=== PATIENT | male | born 1945 | race Caucasian/White ===

== ENCOUNTER 2018-10-04 05:09 | Observation (INO) ==
[2018-10-04] MEDS ORDERED: Ondansetron 4 MG/2 ML VIAL IVP ONE (05:25)
[2018-10-04] MEDS ORDERED: *HR* FentaNYL (PF) 100 MCG/2 ML VIAL IVP ONE (05:25)
[2018-10-04] MEDS ORDERED: 0.9 % Sodium Chloride 1,000 ML IVC STA (05:26)
--- NOTE | 2018-10-04 05:33 | Emergency Department Note ---
Disposition Clinical Impression: Abdominal pain Qualifiers: Abdominal location: generalized Qualified Code(s): R10.84 - Generalized abdominal pain Disposition: Still a Patient Condition: Good Forms: ED Satisfaction Letter, Work/School Release Time of Disposition: 06:20 Abdominal Pain HPI - General Chief Complaint: ED Abdominal Pain Stated Complaint: abd pain Time Seen by Provider: 10/04/18 05:14 Source: patient Mode of arrival: ambulatory Limitations: no limitations Nursing Notes Reviewed: Yes Vital Signs Reviewed: Yes - History of Present Illness HPI Narrative: Male patient presenting to the emergency department complaining of abdominal pain that started yesterday. States he does have a history of 3 surgeries to his abdomen for small bowel obstructions. He does see Dr. chavez for these. States that the pain started yesterday. This causes an aching and bloating feeling in his lower abdomen. States that today it change and is now on his upper abdomen. Does have associated nausea. States he does have some small loose stools that he is passing but that is all. No vomiting. No fevers. Re ports small bowel traction secondary to significant adhesions. Does have a midline abdominal scar. He reports a history of pancreatitis was states this does not feel similar. Pain Scale: 4 - Related Data Home Medications Medication Instructions Recorded Confirmed Aspirin Enteric Coated [Aspirin EC] 81 mg PO DAILY 10/27/14 12/08/15 Ibuprofen [Advil] 200 mg PO AD PRN 12/08/15 12/08/15 Mirtazapine [Remeron] 30 mg PO HS 12/08/15 12/08/15 Previous Rx's Medication Instructions Recorded Acetaminophen [Tylenol] 650 mg PO Q6HR PRN #0 tablet 01/12/16 Metoclopramide [Reglan] 10 mg PO QIDAC #120 tablet 01/12/16 Allergies Allergy/AdvReac Type Severity Reaction Status Date / Time atorvastatin [From Lipitor] AdvReac Weakness Verified 10/04/18 05:12 fenofibrate [From Tricor] AdvReac Nausea Verified 10/04/18 05:12 fexofenadine [From Aubrie-D] AdvReac Abdominal Verified 10/04/18 05:12 Pain pseudoephedrine AdvReac Abdominal Verified 10/04/18 05:12 [From Aubrie-D] Pain sulfamethoxazole AdvReac Nausea Verified 10/04/18 05:12 [From Bactrim] trimethoprim [From Bactrim] AdvReac Nausea Verified 10/04/18 05:12 All systems ED: reviewed and negative except as stated. Review of Systems: As Per HPI Constitutional: Denies: fever, chills Cardiovascular: Reports: chest pain (Lower chest upper abdomen). Denies: syncope Respiratory: Denies: cough, dyspnea Gastrointestinal: Reports: abdominal pain, nausea, diarrhea (Only able to pass a small amount of loose stool). Denies: vomiting, hematemesis, melena, hematochezia Genitourinary: Denies: urgency, dysuria, frequency Abdominal Pain PMH - Past Medical History Medical history: Reports: GERD, hyperlipidemia, hypertension, other Male Surgical History: Reports: appendectomy, cholecystectomy, herniorrhaphy, other Psychiatric history: Reports: no psych history - Social History Smoking status: Never smoker Alcohol use: Reports: none Drug use: Reports: none Physical Exam - General Limitations: no limitations General appearance: alert, in no apparent distress - Head Head exam: atraumatic, normocephalic, normal inspection - Eye Eye exam: Present: normal appearance, PERRL, EOMI - ENT ENT exam: normal exam, normal oropharynx, mucous membranes moist - Neck Neck exam: Present: normal inspection, full ROM, trachea midline - Chest Chest inspection: Present: normal inspection, symmetric chest wall rise - Respiratory Respiratory exam: Present: normal lung sounds bilaterally - Cardiovascular Cardiovascular exam: Present: regular rate, normal rhythm, normal heart sounds - Abdominal Exam Abdominal exam: Present: soft, tenderness (Diffusely.). Absent: distention, guarding, rebound, rigidity, organomegaly, Barnes's sign, Rovsing's sign, tenderness at McBurney's Point - Extremities Exam Extremities exam: Present: normal capillary refill, other (Right [id number] amputation.). Absent: tenderness, pedal edema - Back Exam Back exam: Present: normal inspection, full ROM. Absent: tenderness - Neurological Exam Neurological exam: Present: alert, oriented X3 - Psychiatric Psychiatric exam: Present: normal affect, normal mood - Skin Skin exam: Present: warm, dry, intact, normal color. Absent: rash, cyanosis, diaphoresis Course Course Narrative: Patient walking around the room to get comfortable. His abdomen is rounded but not distended. He reports a small amount of bloating. I cannot auscultate bowel sounds over 30 seconds. His abdomen is soft and not tympanic. He does complain of pain diffusely on palpation. He does not appear to be peritoneal however. Vitals are stable. We will get a basic lab workup on patient and get a CT of his abdomen with IV contrast. We will provide patient with Zofran as well as fentanyl. The Pt did discuss his case with Dr Chavez prior to his arrival here. Vital Signs Temperature 98.2 F 10/04/18 05:09 Pulse Rate 84 10/04/18 05:09 Respiratory Rate 20 10/04/18 05:09 Blood Pressure 143/92 10/04/18 05:09 O2 Sat by Pulse Oximetry 96 10/04/18 05:09 Temperature 98.2 F 10/04/18 05:09 Pulse Rate 84 10/04/18 05:09 Respiratory Rate 20 10/04/18 05:09 Blood Pressure 143/92 10/04/18 05:09 O2 Sat by Pulse Oximetry 96 10/04/18 05:09 Oxygen Delivery Oxygen Delivery Room Air Abdominal Pain - Medical Records Medical records reviewed: Yes I reviewed the patient's medical records. - Lab Data Lab results reviewed: Yes I reviewed the patient's lab results. Result diagrams: 10/04/18 05:43 Lab Results 10/04/18 Range/Units 05:43 WBC 10.2 (4.3-11.1) K/mcL RBC 5.15 (4.19-5.50) M/mcL Hgb 16.9 (12.9-16.9) g/dL Hct 48.0 (37.5-50.1) % MCV 93.2 (83.0-100.0) fL MCH 32.8 (28.0-33.3) pg MCHC 35.2 (31.6-35.5) g/dL RDW 12.7 (11.5-14.5) % Plt Count 239 (140-400) K/mcL MPV 9.2 L (9.4-12.4) fL Immature Gran % 0.4 (0-4) % Seg Neutrophils % 83.0 % Lymphocytes % 7.5 % Monocytes % 8.5 % Eosinophils % 0.3 % Basophils % 0.3 % Neutrophils # 8.5 (1.6-8.9) K/mcL Lymphocytes # 0.8 (0.6-4.6) K/mcL Monocytes # 0.9 (0.0-1.3) K/mcL Eosinophils # 0.0 (0.0-0.6) K/mcL Basophils # 0.0 (0.0-0.2) K/mcL - EKG Data EKG attestation: Yes I reviewed and interpreted this EKG. EKG results narrative: Normal sinus rhythm at a rate of 69. MN interval is 207. QRS duration is 92. QT is 396. No signs of acute ischemia. Poor R-wave progression. No signs of WPW or Brugada.
[2018-10-04 06:01] LABS: Basophils % 0.3 %; Eosinophils % 0.3 %; Hemoglobin 16.9 g/dL (12.9-16.9); Immature Granulocytes % 0.4 % (0-4); Lymphocytes # 0.8 K/mcL (0.6-4.6); Lymphocytes % 7.5 %; Mean Corpuscular HGB Conc 35.2 g/dL (31.6-35.5); Mean Corpuscular Hemoglobin 32.8 pg (28.0-33.3); Mean Corpuscular Volume 93.2 fL (83.0-100.0); Mean Platelet Volume 9.2 fL (9.4-12.4); Monocytes # 0.9 K/mcL (0.0-1.3); Monocytes % 8.5 %; Neutrophils # 8.5 K/mcL (1.6-8.9); Platelet Count 239 K/mcL (140-400); Red Blood Count 5.15 M/mcL (4.19-5.50); Red Cell Distribution Width 12.7 % (11.5-14.5); White Blood Count 10.2 K/mcL (4.3-11.1)
[2018-10-04 06:24] LABS: Troponin I < 0.03 ng/mL (< 0.04)
[2018-10-04 06:29] LABS: Alanine Aminotransferase 21 Units/L (7-52); Albumin 4.9 g/dL (3.5-5.7); Albumin/Globulin Ratio 1.9 (1.1-2.2); Alkaline Phosphatase 102 Units/L (34-104); Aspartate Amino Transferase 18 Units/L (13-39); BUN/Creatinine Ratio 14 (6-26); Bilirubin,Direct 0.3 mg/dL (0.0-0.2); Bilirubin,Indirect 2.3 mg/dL (0.0-1.2); Bilirubin,Total 2.6 mg/dL (0.3-1.0); Blood Urea Nitrogen 14 mg/dL (8-23); Calcium 10.2 mg/dL (8.6-10.3); Carbon Dioxide 20 mEq/L (23-29); Chloride 101 mEq/L (98-107); Globulin 2.6 g/dL (2.4-3.5); Glucose 125 mg/dL (70-105); Lipase 10 Units/L (11-82); Osmolality,Calculated 284 (280-300); Potassium 3.7 mEq/L (3.5-5.1); Sodium 136 mEq/L (136-145); Total Protein 7.5 g/dL (6.4-8.9); eGFR For African Americans > 60 (> 60); eGFR For Non-African Americans > 60 (> 60)
[2018-10-04] MEDS ORDERED: Isovue-370 500 ML BOTTLE IVP ONE (06:34)
--- NOTE | 2018-10-04 06:38 | Emergency Department Note ---
Disposition Clinical Impression: Abdominal pain Qualifiers: Abdominal location: generalized Qualified Code(s): R10.84 - Generalized abdominal pain Disposition: Still a Patient Condition: Good Referrals: Matthew Gallardo Jr, MD [Primary Care Provider] - Forms: ED Satisfaction Letter, Work/School Release Time of Disposition: 06:38 General Adult HPI - General Chief complaint: ED Abdominal Pain Stated complaint: abd pain Time Seen by Provider: 10/04/18 05:14 Source: patient Mode of arrival: ambulatory Limitations: no limitations Nursing Notes Reviewed: Yes Vital Signs Reviewed: Yes - History of Present Illness Pain Scale: 4 - Related Data Home Medications Medication Instructions Recorded Confirmed Aspirin Enteric Coated [Aspirin EC] 81 mg PO DAILY 10/27/14 12/08/15 Ibuprofen [Advil] 200 mg PO AD PRN 12/08/15 12/08/15 Mirtazapine [Remeron] 30 mg PO HS 12/08/15 12/08/15 Previous Rx's Medication Instructions Recorded Acetaminophen [Tylenol] 650 mg PO Q6HR PRN #0 tablet 01/12/16 Metoclopramide [Reglan] 10 mg PO QIDAC #120 tablet 01/12/16 Allergies Allergy/AdvReac Type Severity Reaction Status Date / Time atorvastatin [From Lipitor] AdvReac Weakness Verified 10/04/18 05:12 fenofibrate [From Tricor] AdvReac Nausea Verified 10/04/18 05:12 fexofenadine [From Aubrie-D] AdvReac Abdominal Verified 10/04/18 05:12 Pain pseudoephedrine AdvReac Abdominal Verified 10/04/18 05:12 [From Aubrie-D] Pain sulfamethoxazole AdvReac Nausea Verified 10/04/18 05:12 [From Bactrim] trimethoprim [From Bactrim] AdvReac Nausea Verified 10/04/18 05:12 Constitutional: Denies: fever, chills Cardiovascular: Reports: chest pain (Lower chest upper abdomen). Denies: syncope Respiratory: Denies: cough, dyspnea Gastrointestinal: Reports: abdominal pain, nausea, diarrhea (Only able to pass a small amount of loose stool). Denies: vomiting, hematemesis, melena, hematochezia Genitourinary: Denies: urgency, dysuria, frequency Past Medical History - Past Medical History Medical history: Reports: GERD, hyperlipidemia, hypertension, other Surgical history: Reports: no surgical history Psychiatric history: Reports: no psych history - Social History Smoking Status: Never smoker Smokeless Tobacco Status: No Alcohol use: Reports: none Drug use: Reports: none Physical Exam - General Limitations: no limitations General appearance: alert, in no apparent distress Course Vital Signs Temperature 98.2 F 10/04/18 05:09 Pulse Rate 84 10/04/18 05:09 Respiratory Rate 20 10/04/18 05:09 Blood Pressure 143/92 10/04/18 05:09 O2 Sat by Pulse Oximetry 96 10/04/18 05:09 Temperature 98.2 F 10/04/18 05:09 Pulse Rate 84 10/04/18 05:09 Respiratory Rate 20 10/04/18 05:09 Blood Pressure 143/92 10/04/18 05:09 O2 Sat by Pulse Oximetry 96 10/04/18 05:09 Oxygen Delivery Oxygen Delivery Room Air Medical Decision Making - Medical Records Medical records reviewed: Yes I reviewed the patient's medical records. - Lab Data Lab results reviewed: Yes I reviewed the patient's lab results. Result diagrams: 10/04/18 05:43 10/04/18 05:43 Lab Results 10/04/18 10/04/18 Range/Units 05:43 05:43 WBC 10.2 (4.3-11.1) K/mcL RBC 5.15 (4.19-5.50) M/mcL Hgb 16.9 (12.9-16.9) g/dL Hct 48.0 (37.5-50.1) % MCV 93.2 (83.0-100.0) fL MCH 32.8 (28.0-33.3) pg MCHC 35.2 (31.6-35.5) g/dL RDW 12.7 (11.5-14.5) % Plt Count 239 (140-400) K/mcL MPV 9.2 L (9.4-12.4) fL Immature Gran % 0.4 (0-4) % Seg Neutrophils % 83.0 % Lymphocytes % 7.5 % Monocytes % 8.5 % Eosinophils % 0.3 % Basophils % 0.3 % Neutrophils # 8.5 (1.6-8.9) K/mcL Lymphocytes # 0.8 (0.6-4.6) K/mcL Monocytes # 0.9 (0.0-1.3) K/mcL Eosinophils # 0.0 (0.0-0.6) K/mcL Basophils # 0.0 (0.0-0.2) K/mcL Sodium 136 (136-145) mEq/L Potassium 3.7 (3.5-5.1) mEq/L Chloride 101 (98-107) mEq/L Carbon Dioxide 20 L (23-29) mEq/L BUN 14 (8-23) mg/dL Creatinine 0.97 (0.70-1.30) mg/dL Est GFR ( Amer) > 60 (> 60) Est GFR (Non-Af Amer) > 60 (> 60) BUN/Creatinine Ratio 14 (6-26) Glucose 125 H (70-105) mg/dL Calculated Osmolality 284 (280-300) Calcium 10.2 (8.6-10.3) mg/dL Total Bilirubin 2.6 H (0.3-1.0) mg/dL Direct Bilirubin 0.3 H (0.0-0.2) mg/dL Indirect Bilirubin 2.3 H (0.0-1.2) mg/dL AST 18 (13-39) Units/L ALT 21 (7-52) Units/L Alkaline Phosphatase 102 (34-104) Units/L Troponin I < 0.03 (< 0.04) ng/mL Serum Total Protein 7.5 (6.4-8.9) g/dL Albumin 4.9 (3.5-5.7) g/dL Globulin 2.6 (2.4-3.5) g/dL Albumin/Globulin Ratio 1.9 (1.1-2.2) Lipase 10 L (11-82) Units/L - EKG Data EKG #1 EKG attestation: Yes I reviewed and interpreted this EKG. EKG results narrative: EKG shows a normal sinus rhythm with ventricular rate of 69. Left axis deviation. No significant ST segment elevation or depression. No arrhythmia or ectopy. Attestation Statement - Attestation Attestation: I, Zachary Vaz MD, personally evaluated this patient and discussed their management with the resident physician. I reviewed the resident's note and agree with the documented findings, medical decision making, and plan of care. I reviewed the residents documentation and agree with the residents assessment and plan of care. I have personally had face to face time with the patient. I personally supervised and was present for the jimenez/critical portions of the following procedures completed by the resident: EKG interpretation. 73-year-old male presents to the emergency department with a complaint of generalized abdominal pain that started yesterday but got worse during the night. Some nausea but no vomiting. Patient states he has a history of multiple bowel obstructions in the past and this feels the same. He has had 3 prior abdominal surgeries for bowel obstructions due to adhesions. He is followed by Dr. chavez for his abdominal problems and his last surgery was by Dr. chavez in 2016. No fever. No melena, hematemesis, or hematochezia. He states he has been passing small amounts of loose stool. No urinary symptoms. The pain is primarily in the upper abdomen and up into the lower chest. No shortness of breath. On examination patient is a well-developed well-nourished well-appearing elderly male in no acute distress. He is alert and oriented 3. There is no cyanosis or diaphoresis. Chest is nontender to palpation. Breath sounds are clear and equal bilaterally. Heart regular rate and rhythm. Abdomen is soft with decreased bowel sounds. Mild diffuse tenderness with no guarding or rebound tenderness. No tympany or distention. No CVA tenderness. Labs reviewed. Elevated total bilirubin however on reviewing his past records this has been elevated significantly in the past. Transaminases normal. EKG shows a normal sinus rhythm with ventricular rate of 69. Left axis deviation. No significant ST segment elevation or depression. No arrhythmia or ectopy. CT of the abdomen and pelvis with IV and oral contrast was ordered and is pending at shift change. Dr. Elizabeth discussed the case with the patient's surgeon, Dr. chavez. He has reviewed the chart and requested that we contact him back with results of the CT. At morning shift change patient is signed out to the [facility], Dr. Kim.
--- NOTE | 2018-10-04 07:17 | Emergency Department Note ---
Disposition Clinical Impression: Small bowel obstruction Abdominal pain Qualifiers: Abdominal location: generalized Qualified Code(s): R10.84 - Generalized abdominal pain Disposition: Admitted As Inpatient Condition: Good Referrals: Matthew Gallardo Jr, MD [Primary Care Provider] - Forms: ED Satisfaction Letter, Work/School Release Time of Disposition: 08:25 Abdominal Pain HPI - General Chief Complaint: ED Abdominal Pain Stated Complaint: abd pain Time Seen by Provider: 10/04/18 05:14 Source: patient Mode of arrival: ambulatory - History of Present Illness HPI Narrative: Patient 73-year-old male presents here with apparently abdominal pain. The patient was handed off to me by Dr. Vaz. Please see their note as well as the resident note for further history of present illness and review of systems as well as examination. Pain Scale: 4 - Related Data Home Medications Medication Instructions Recorded Confirmed Aspirin Enteric Coated [Aspirin EC] 81 mg PO DAILY 10/27/14 10/04/18 Allergies Allergy/AdvReac Type Severity Reaction Status Date / Time atorvastatin [From Lipitor] AdvReac Weakness Verified 10/04/18 05:12 fenofibrate [From Tricor] AdvReac Nausea Verified 10/04/18 05:12 fexofenadine [From Aubrie-D] AdvReac Abdominal Verified 10/04/18 05:12 Pain pseudoephedrine AdvReac Abdominal Verified 10/04/18 05:12 [From Aubrie-D] Pain sulfamethoxazole AdvReac Nausea Verified 10/04/18 05:12 [From Bactrim] trimethoprim [From Bactrim] AdvReac Nausea Verified 10/04/18 05:12 Review of Systems: As Per HPI Constitutional: Denies: fever, chills Cardiovascular: Reports: chest pain (Lower chest upper abdomen). Denies: syncope Respiratory: Denies: cough, dyspnea Gastrointestinal: Reports: abdominal pain, nausea, diarrhea (Only able to pass a small amount of loose stool). Denies: vomiting, hematemesis, melena, hematochezia Genitourinary: Denies: urgency, dysuria, frequency Abdominal Pain PMH - Past Medical History Medical history: Reports: GERD, hyperlipidemia, hypertension, other Male Surgical History: Reports: appendectomy, cholecystectomy, herniorrhaphy, other Psychiatric history: Reports: no psych history - Social History Smoking status: Never smoker Alcohol use: Reports: none Drug use: Reports: none Physical Exam Patient was examined by myself, the patient has a overall nontender abdomen, m inimally distended, bowel sounds are appreciated. The full H&P as well as the rectal examination was performed by resident as well as Dr. Vaz. Please see their note for further evaluation. - General Limitations: no limitations General appearance: alert, in no apparent distress Course Vital Signs Temperature 98.2 F 10/04/18 05:09 Pulse Rate 84 10/04/18 05:09 Respiratory Rate 20 10/04/18 05:09 Blood Pressure 143/92 10/04/18 05:09 O2 Sat by Pulse Oximetry 96 10/04/18 05:09 Temperature 98.2 F 10/04/18 05:09 Pulse Rate 67 10/04/18 07:59 Respiratory Rate 16 10/04/18 07:59 Blood Pressure 132/77 10/04/18 07:59 O2 Sat by Pulse Oximetry 95 10/04/18 07:59 Oxygen Delivery Oxygen Delivery Room Air Abdominal Pain - MDM Narrative Medical decision making narrative: Patient's labs have been reviewed, they are otherwise unremarkable, no evidence of pancreatitis, patient does have a slightly elevated bilirubin however this has been elevated in the past and at baseline overall. The patient is resting here comfortably and actually feeling he is improving. At this time we are currently waiting the CAT scan results. Case was discussed with Dr. Phoenix, CT does show evidence of a obstruction secondary to the adhesions. The patient at this time is feeling much improved here in the emergency room however. This was discussed with the surgeon, at this time patient is going to be admitted for a small bowel obstruction to surgical services. Final impression, small bowel obstruction - Lab Data Result diagrams: 10/04/18 05:43 10/04/18 05:43 Lab Results 10/04/18 10/04/18 10/04/18 Range/Units 05:43 05:43 07:37 WBC 10.2 (4.3-11.1) K/mcL RBC 5.15 (4.19-5.50) M/mcL Hgb 16.9 (12.9-16.9) g/dL Hct 48.0 (37.5-50.1) % MCV 93.2 (83.0-100.0) fL MCH 32.8 (28.0-33.3) pg MCHC 35.2 (31.6-35.5) g/dL RDW 12.7 (11.5-14.5) % Plt Count 239 (140-400) K/mcL MPV 9.2 L (9.4-12.4) fL Immature Gran % 0.4 (0-4) % Seg Neutrophils % 83.0 % Lymphocytes % 7.5 % Monocytes % 8.5 % Eosinophils % 0.3 % Basophils % 0.3 % Neutrophils # 8.5 (1.6-8.9) K/mcL Lymphocytes # 0.8 (0.6-4.6) K/mcL Monocytes # 0.9 (0.0-1.3) K/mcL Eosinophils # 0.0 (0.0-0.6) K/mcL Basophils # 0.0 (0.0-0.2) K/mcL Sodium 136 (136-145) mEq/L Potassium 3.7 (3.5-5.1) mEq/L Chloride 101 (98-107) mEq/L Carbon Dioxide 20 L (23-29) mEq/L BUN 14 (8-23) mg/dL Creatinine 0.97 (0.70-1.30) mg/dL Est GFR ( Amer) > 60 (> 60) Est GFR (Non-Af Amer) > 60 (> 60) BUN/Creatinine Ratio 14 (6-26) Glucose 125 H (70-105) mg/dL Calculated Osmolality 284 (280-300) Lactic Acid 1.3 (0.5-2.2) mmol/L Calcium 10.2 (8.6-10.3) mg/dL Total Bilirubin 2.6 H (0.3-1.0) mg/dL Direct Bilirubin 0.3 H (0.0-0.2) mg/dL Indirect Bilirubin 2.3 H (0.0-1.2) mg/dL AST 18 (13-39) Units/L ALT 21 (7-52) Units/L Alkaline Phosphatase 102 (34-104) Units/L Troponin I < 0.03 (< 0.04) ng/mL Serum Total Protein 7.5 (6.4-8.9) g/dL Albumin 4.9 (3.5-5.7) g/dL Globulin 2.6 (2.4-3.5) g/dL Albumin/Globulin Ratio 1.9 (1.1-2.2) Lipase 10 L (11-82) Units/L
[2018-10-04 08:22] LABS: Bacteria,Urine None Seen per hpf (None-Few); Bilirubin,Urine Small (Negative); Blood,Urine Negative (Negative); Clarity,Urine Clear (Clear); Color,Urine Dark Yellow (Yellow); Glucose,Urine (UA) Normal (Normal); Hyaline Casts,Urine Moderate per lpf (None-Few); Ketones,Urine Trace mg/dL (Negative); Nitrite,Urine Negative (Negative); Protein,Urine 30 mg/dL (Neg-Trace); Specific Gravity,Urine 1.023 (1.010-1.025); Squamous Epithelial Cell,Urine Many per lpf (None-Few); Urobilinogen,Urine Normal (Normal); WBC,Urine 0-3 per hpf (0-3)
[2018-10-04 08:23] LABS: Leukocyte Esterase,Urine Negative (Negative)
[2018-10-04] MEDS: Ringers Solution, Lactated 1,000 ML IVC SCH ×2 (12:06→22:21)
[2018-10-04] MEDS ORDERED: Acetaminophen 325 MG TABLET PO PRN (15:07)
--- NOTE | 2018-10-04 15:30 | General Surg History&Physical ---
Date of Encounter: 10/04/18 Time of Encounter: 14:45 History of Present Illness Chief complaint: abd pain, bloating, SBO HPI: Mr. Singh is a 73 year old male admitted after presenting to the [facility] ED with approximately a 24-hour history of abdominal pain, bloating, and radiologic evidence of small bowel obstruction. The patient has been nauseated but denies emesis. Patient is well known to [facility] having required multiple transabdominal exploratory celiotomy for recurrent small bowel obstruction. Lab work was unremarkable; the patient was not febrile and he was hemodynamically stable. CT demonstrated findings of a new left lower lobe infiltrate as well as dilated distal small bowel with a transition zone consistent with a recurrent small bowel obstruction likely due to adhesions. Since his presentation to the emergency department and subsequent admission; the patient is feeling better he has passed gas and has had several small BMs. There have been no recorded fevers, nausea or vomiting. Past medical history is notable for obstructive sleep apnea; depression; hypercholesterolemia; renal stones; diverticulosis Surgical history: Hernia repair 2; open appendectomy; exploratory celiotomy with lysis of adhesions 1992 and 1993. 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 Recurrent SBO requiring exploratory celiotomy, extended lysis of adhesions, suture repair enterotomy and suture repair of ventral incisional hernia, 12/11/15. Allergies: no known drug allergies Medications: Aspirin 81 mg by mouth daily Social history: Patient is , lives at home with his spouse; he has never smoked; he denies alcohol or illicit drug use Family history: Father had a history of stroke; both parents with heart Physical Examination: Age-appropriate male in no acute distress; 1.83 m tall, 95.617 kg; BMI 28.6. The patient has remained afebrile, currently 97.8, pulse 61 and regular; RR 16, nonlabored; BP 116/76 to 132/81. SPO2 on room air 95% Skin: Warm, without obvious jaundice Lungs: Rales detected posterior left lung field; CT shows new infiltrate left lower lobe - atelectasis versus pneumonia Cardiac: Regular rate, no appreciable murmurs Abdomen: Soft, nontender. The described abdominal distention when the patient presented to the ED is no longer evident. Bowel sounds are hypoactive. Extremities: Evidence of right below-knee amputation. The patient ambulates effectively with a prosthesis. No obvious clubbing, cyanosis, or edema left lower extremity Labs: WBC 10.2, hemoglobin 16.9, hematocrit 48.2; differential is unremarkable; platelet count 239,000 Electrolytes BUN and creatinine within normal limits, bicarbonate notably low at 20 Bilirubin 2.6; ALT 21, AST 18, alkaline phosphatase 102 Urinalysis- specific gravity 1.0-3, pH 5, protein 30, ketones trace, bilir ubin small, microscopic notable for 5-15 rbc per high-powered field. CT abdomen/pelvis - reviewed with [facility] Impression: 73-year-old male with recurrent abdominal pain, nausea but no emesi s, bloating, and radiologic evidence of small bowel obstruction. CT abd/pelvis notable for right renal cysts ranging from 0.8-3.4 cm; mild abdominal aortic arteriosclerosis without aneurysm; numerous anterior small bowel adhesions with proximal through distal jejunum demonstrating moderate distention consistent with a small bowel obstruction distal to the jejunum. The ileum and colon appeared decompressed with minimal fluid opacify case and to the level of the cecum. Diverticulosis without acute inflammatory changes is also described. Plan: Nothing by mouth until symptoms subside; NG decompression if abdominal distention worsens, or nausea vomiting develop Begin antibiotic therapy (Zithromax) for the newly detected opacification left lower lung. Acute abdominal series in a.m. Surgical intervention will be considered if the patient's symptoms persist or worsen despite the present medical regimen Past Med Surg Social Fam HX - Past Medical History Medical history: GERD, hyperlipidemia, hypertension, other Additional medical history: bowel obstructions Psychiatric history: no psych history - Past Surgical History Surgical History: no surgical history Additional surgical history: colectomy - Social History Smoking Status: Never smoker Smokeless Tobacco Status: No Alcohol use: none Drug use: none - Family History Mother Adopted: Yes Family Member Ethnicity: Non- Living Status: Hx Family Cardiac Disorders: Yes Hx Family Respiratory Disorders: No Hx Family Cancer: No Hx Family GI Disorders: No Hx Family Endocrine Disorder: No Hx Family Neuromuscular Disorders: No Hx Family Neurologic Disorders: No Hx Family HEENT Disorders: No Hx Family Autoimmune Disorders: No Medications and Allergies Aspirin Enteric Coated [Aspirin EC] 81 mg PO DAILY 10/27/14 [History] Allergy/AdvReac Type Severity Reaction Status Date / Time atorvastatin [From Lipitor] AdvReac Weakness Verified 10/04/18 05:12 fenofibrate [From Tricor] AdvReac Nausea Verified 10/04/18 05:12 fexofenadine [From Aubrie-D] AdvReac Abdominal Verified 10/04/18 05:12 Pain pseudoephedrine AdvReac Abdominal Verified 10/04/18 05:12 [From Aubrie-D] Pain sulfamethoxazole AdvReac Nausea Verified 10/04/18 05:12 [From Bactrim] trimethoprim [From Bactrim] AdvReac Nausea Verified 10/04/18 05:12 Review of Systems All systems PM: The remainder of the systems were reviewed and are negative General Surgery Exam Initial Vital Signs Temp Pulse Resp BP Pulse Ox 98.2 F 84 20 143/92 96 10/04/18 05:09 10/04/18 05:09 10/04/18 05:09 10/04/18 05:09 10/04/18 05:09 Results - Labs 10/04/18 05:43 10/04/18 05:43 Abnormal lab results MPV 9.2 fL (9.4-12.4) L 10/04/18 05:43 Carbon Dioxide 20 mEq/L (23-29) L 10/04/18 05:43 Glucose 125 mg/dL (70-105) H 10/04/18 05:43 Total Bilirubin 2.6 mg/dL (0.3-1.0) H 10/04/18 05:43 Direct Bilirubin 0.3 mg/dL (0.0-0.2) H 10/04/18 05:43 Indirect Bilirubin 2.3 mg/dL (0.0-1.2) H 10/04/18 05:43 Lipase 10 Units/L (11-82) L 10/04/18 05:43 Ur Specimen Adequacy See below A 10/04/18 07:50 Urine Protein 30 mg/dL (Neg-Trace) H 10/04/18 07:50 Urine Ketones Trace mg/dL (Negative) H 10/04/18 07:50 Urine Bilirubin Small (Negative) H 10/04/18 07:50 Urine Microscopic RBC 5-15 per hpf (0-3) H 10/04/18 07:50 Ur Squamous Epith Cells Many per lpf (None-Few) H 10/04/18 07:50 Hyaline Casts Moderate per lpf (None-Few) H 10/04/18 07:50 Diabetes panel 10/04/18 Range/Units 05:43 Sodium 136 (136-145) mEq/L Potassium 3.7 (3.5-5.1) mEq/L Chloride 101 (98-107) mEq/L Carbon Dioxide 20 L (23-29) mEq/L BUN 14 (8-23) mg/dL Creatinine 0.97 (0.70-1.30) mg/dL Glucose 125 H (70-105) mg/dL Calcium 10.2 (8.6-10.3) mg/dL AST 18 (13-39) Units/L ALT 21 (7-52) Units/L Alkaline Phosphatase 102 (34-104) Units/L Albumin 4.9 (3.5-5.7) g/dL Calcium panel 10/04/18 Range/Units 05:43 Calcium 10.2 (8.6-10.3) mg/dL Albumin 4.9 (3.5-5.7) g/dL Pituitary panel 10/04/18 Range/Units 05:43 Sodium 136 (136-145) mEq/L Potassium 3.7 (3.5-5.1) mEq/L Chloride 101 (98-107) mEq/L Carbon Dioxide 20 L (23-29) mEq/L BUN 14 (8-23) mg/dL Creatinine 0.97 (0.70-1.30) mg/dL Glucose 125 H (70-105) mg/dL Calcium 10.2 (8.6-10.3) mg/dL Adrenal panel 10/04/18 Range/Units 05:43 Sodium 136 (136-145) mEq/L Potassium 3.7 (3.5-5.1) mEq/L Chloride 101 (98-107) mEq/L Carbon Dioxide 20 L (23-29) mEq/L BUN 14 (8-23) mg/dL Creatinine 0.97 (0.70-1.30) mg/dL Glucose 125 H (70-105) mg/dL Calcium 10.2 (8.6-10.3) mg/dL Total Bilirubin 2.6 H (0.3-1.0) mg/dL AST 18 (13-39) Units/L ALT 21 (7-52) Units/L Alkaline Phosphatase 102 (34-104) Units/L Albumin 4.9 (3.5-5.7) g/dL All other labs normal.
[2018-10-04] MEDS: Azithromycin 250 MG TABLET PO SCH (17:00)
--- NOTE | 2018-10-04 19:50 | Electrocardiograph Report ---
[place] [id number] Test Date: 2018-10-04 Pat Name: Santosh Singh Department: [id number] Room: 3A36 Gender: M Notcher: : 1945 Requested By: Germania Elizabeth Order Number: [id number] Reading MD: Randee Macias Measurements Intervals [place] Rate: 69 P: 55 [place]: 207 QRS: -39 QRSD: 93 T: 56 QT: 396 QTc: 425 Interpretive Statements Sinus rhythm Left axis deviation Borderline low voltage, extremity leads Poor R wave progression in precordial leads Electronically Signed On 10-04-2018 19:49:25 EDT by Randee Macias
[2018-10-04] MEDS ORDERED: Mirtazapine 15 MG TABLET PO SCH (21:00)
[2018-10-05] MEDS: Azithromycin 250 MG TABLET PO SCH (08:43)
[2018-10-05] MEDS: Ringers Solution, Lactated 1,000 ML IVC SCH (08:44)
[2018-10-05] MEDS ORDERED: Aspirin 81 MG TAB.CHEW PO SCH (09:00)
[2018-10-05 10:37] VITALS: BP 118/72
--- NOTE | 2018-10-05 13:27 | General Surgery Progress Note ---
Date of Encounter: 10/05/18 Time of Encounter: 13:22 Subjective Patient reports: feels better, tolerating liquids well Narrative: General Surgery - Hospital Day #1 Progress Note / Discharge Summary Patient feeling much improved; tolerating clear liquid diet. Patient remains afebrile, currently 98.2, hemodynamically stable, with regular pulse at 61, respirations 16 nonlabored, blood pressure 118/72 - 123/78 Acute abdominal series completed this morning was reviewed with [facility]. Lungs were described to be clear, the previously described infiltrate left lower lung was most likely atelectasis. The patient's bowel pattern was nonspecific without evidence of continuing obstruction. Some air is evident within the colon. Lungs: Clear bilaterally Abdomen: Soft, nontender. Bowel sounds are active. Patient with moderate liquid brown BM overnight. Impression: 73-year-old male admitted for further evaluation and treatment of abdominal pain, bloating, nausea and radiologic evidence of small bowel obstruction is feeling significantly improved. Nausea has resolved. He has experienced no emesis. Abdominal distention and pain is resolved. He is tolerating a clear liquid diet. It appears that the small bowel obstruction is resolved. This was discussed extensively with the patient and he wishes to be discharged home with outpatient follow-up. Plan: Discharge home Outpatient follow-up, 10/13/18. Objective Vital Signs - Last 8 Hours Temp Pulse Resp BP Pulse Ox 10/05/18 10:36 98.2 F 61 16 118/72 95 10/05/18 07:28 98.2 F 57 18 123/78 97 Intake and Output 10/04/18 10/05/18 10/05/18 23:59 07:59 15:59 Intake Total 1000 / 2000 500 / 2000 1500 / 2000 Output Total 0 / 0 600 / 600 Balance 1000 / 2000 500 / 1400 900 / 1400 Intake: IV Fluids 1000 / 2000 1000 / 1000 Lactated Ringers 1,000 ML @ 100 1000 / 1000 1000 / 1000 mls/hr IVC .Q10H JUAREZ Rx#: [id number] Oral 0 / 0 500 / 1000 500 / 1000 Output: Urine 0 / 0 600 / 600 Other: # Voids 1 1 # Bowel Movements 1 - Labs 10/04/18 05:43 10/04/18 05:43 Consult Discharge Plan - Plan Referrals: Matthew Gallardo Jr, MD [Primary Care Provider] -
--- NOTE | 2018-10-05 13:29 | Discharge Summary ---
Outpatient Proc Discharge Plan - Plan Additional Instructions: Regular diet as tolerated Activities as tolerated; no restriction Outpatient follow-up, 10/13/18. Patient to contact my office in a.m. to make this appointment Home meds as before Home Medications: Aspirin Enteric Coated [Aspirin EC] 81 mg PO DAILY 10/27/14 [History] Omeprazole [PriLOSEC] 20 mg PO DAILY 10/04/18 [History] Acetaminophen [Tylenol] 650 mg PO Q6HR PRN tablet 10/05/18 [Rx]
== END 2018-10-05 13:51 | disposition home or self-care (01) ==
LOC: 3ANU 05:09 → EMEROOARM 05:09 → 3ANU 10:13
PROVIDERS: ADMIT Surgery; ATTEND Surgery

== ENCOUNTER 2019-06-23 17:30 | Observation (INO) ==
[2019-06-23] MEDS ORDERED: Ondansetron ODT 4 MG TAB.RAPDIS SL PRN (18:51)
[2019-06-23] MEDS ORDERED: *HR* HYDROmorphone (PF) 1 MG/ML SYRINGE IVP PRN (18:53)
[2019-06-23] MEDS ORDERED: Ringer's Solution, Lactated 250 ML IV.SOLN IVC SCH (19:00)
[2019-06-23] MEDS ORDERED: Ringers Solution, Lactated 1,000 ML IVC SCH (19:15)
[2019-06-24 07:14] VITALS: BP 130/81
== END 2019-06-24 09:16 | disposition home or self-care (01) ==
LOC: 3ANU
PROVIDERS: ADMIT Surgery; ATTEND Surgery